=== PATIENT | female | born 1985 | race Caucasian/White ===

== ENCOUNTER → 2018-10-06 | Outpatient (CLI) | payer OTHER | LOC: COL.RAD 08:41 | DX: G44.229 Chronic tension-type headache, not intractable (principal); Z82.49 Family history of ischemic heart disease and other diseases of the circulatory system ==

== ENCOUNTER 2018-11-15 07:05 | Day surgery (SDC) | payer OTHER ==
[~2018-11-15] VITALS: Ht 162.6 cm; Wt 40.3 kg
[2018-11-15 07:51] VITALS: BP 106/76; PULSE 79; TEMP 98.4
[2018-11-15] MEDS ORDERED: MULTIPLE VITAMI1 CAP PO (08:18)
[2018-11-15] MEDS ORDERED: ZYRTEC 10MG10 MG PO (08:19)
[2018-11-15] MEDS ORDERED: [UNRECOGNIZED DRUG - OTHER] SQ (08:20)
[2018-11-15] MEDS ORDERED: PREMPHASE1 TAB PO (08:20)
[2018-11-15] MEDS ORDERED: TIROSINT75 MC1 PO (08:21)
[2018-11-15 09:40] VITALS: BP 98/57; PULSE 59
--- NOTE | 2018-11-15 09:40 | NUR ---
Patient returns to room 1 per cart from surgery and is awake and alert. Temp 97.4 and room air sats 97%. Right foot anais wrap dressing clean and dry with post op shoe on. IV fluids infusing and site is free of redness. Foot of cart is elevated. Denies pain or nausea. Mother in room. Allowed to rest.
[2018-11-15 09:55] VITALS: BP 100/54; PULSE 51
--- NOTE | 2018-11-15 09:55 | NUR ---
Resting and denies pain or nausea. Mother in room. Patient is tolerating sips of water.
[2018-11-15] MEDS ORDERED: ZOFRAN INJ4 MG/2 ML IV (10:02)
[2018-11-15 10:10] VITALS: BP 98/62; PULSE 54
--- NOTE | 2018-11-15 10:10 | NUR ---
Room air sats 99%. Resting and sipping on water.
[2018-11-15 10:25] VITALS: BP 99/62; PULSE 55
--- NOTE | 2018-11-15 10:25 | NUR ---
Eating muffin and applesauce. Denies nausea.
[2018-11-15 10:40] VITALS: BP 99/63; PULSE 58
--- NOTE | 2018-11-15 10:40 | NUR ---
Room air sats 97%. Offers no complaints.
[2018-11-15] MEDS ORDERED: PERCOCET 325 MG1 TA2 PO (10:43)
--- NOTE | 2018-11-15 10:55 | NUR ---
Assisted up to the bathroom and voids. Post op shoe on and anais wrap dressing clean and dry. IV discontinued.
--- NOTE | 2018-11-15 11:00 | NUR ---
Patient dresses self and tolerates activity well.
--- NOTE | 2018-11-15 11:12 | NUR ---
Given dismissal instructions and voices understanding of home cares and follow as scheduled by Dr. Vo. Provided office number for questions and concerns.
--- NOTE | 2018-11-15 11:20 | NUR ---
Patient dismissed to home per private vehicle driven by mother and taken to the front door per wheelchair and assisted into vehicle by RN with instructions in hand.
== END 2018-11-15 11:20 | disposition home or self-care (01) ==
LOC: SDCO 07:05
DX: M20.11 Hallux valgus (acquired), right foot (principal); M21.611 Bunion of right foot; E23.0 Hypopituitarism; E66.9 Obesity, unspecified; K59.04 Chronic idiopathic constipation; E04.9 Nontoxic goiter, unspecified; J30.89 Other allergic rhinitis; G44.229 Chronic tension-type headache, not intractable; Z82.0 Family history of epilepsy and other diseases of the nervous system; Z82.5 Family history of asthma and other chronic lower respiratory diseases; Z83.79 Family history of other diseases of the digestive system; Z82.61 Family history of arthritis; Z88.2 Allergy status to sulfonamides; Z79.51 Long term (current) use of inhaled steroids
CPT/HCPCS: J0690; J1100; J1885; J2250; J2405; J2704; J3010; J7120

== ENCOUNTER → 2020-07-29 | Outpatient (CLI) | payer OTHER ==
[~2020-07-29] MED LIST: MULTIPLE VITAMI1 CAP PO; PERCOCET 325 MG1 TA2 PO; PREMPHASE1 TAB PO; TIROSINT75 MC1 PO; ZOFRAN INJ4 MG/2 ML IV; ZYRTEC 10MG10 MG PO; [UNRECOGNIZED DRUG - OTHER] SQ
== END ==
LOC: COL.LAB 13:09
DX: Z01.89 Encounter for other specified special examinations (principal)

== ENCOUNTER 2023-11-21 11:55 | Day surgery (SDC) | payer BC ==
[~2023-11-21] VITALS: Ht 162.6 cm; Wt 89.9 kg
[~2023-11-21 11:55] MED LIST changes: +LR 1,000 ML IV SCH; +Ondansetron 4 MG/2 ML VIAL IV PRN; +PREMPRO 0.625/21 TAB PO
[2023-11-21 12:35] VITALS: BP 112/78; PULSE 76; TEMP 97.5
--- NOTE | 2023-11-21 12:41 | NUR ---
Patient alert, oriented x4, ambulates with steady gait. Admitted to [facility]. Admission assessments complete. Consents signed. Waiver for test signed. 22G IV inserted into RAC. Dr. Sales in room to answer questions. LR infusing without issue. Resting in recliner, call light within reach. brought to bedside.
[2023-11-21] MEDS ORDERED: Lidocaine PF 2% (20 MG/ML) 5 ML VIAL ONE (12:56)
[2023-11-21] MEDS ORDERED: ZYRTEC 10MG10 MG PO (12:58)
[2023-11-21] MEDS ORDERED: FLONASEALLERGY NS (12:58)
[2023-11-21] MEDS ORDERED: MAGNESIUM CITR100 MG PO (12:59)
[2023-11-21] MEDS ORDERED: FOLIC ACID 11 MG/TA1 PO (12:59)
[2023-11-21] MEDS ORDERED: VITAMIN D31000 I1 PO (12:59)
[2023-11-21] MEDS ORDERED: IRON TABLETS325 MG PO (13:00)
[2023-11-21 13:30] VITALS: BP 114/78; PULSE 85
[2023-11-21 13:45] VITALS: BP 113/83; PULSE 70
[2023-11-21 14:00] VITALS: BP 102/62; PULSE 72
--- NOTE | 2023-11-21 16:55 | NUR ---
1330 PATIENT RETURNS TO [facility] VIA CART. PT AWAKE AND ALERT. RESPIRATIONS UNLABORED. AMBULATED TO RECLINER CHAIR WITH 2:1 SBA. PT DENIES NAUSEA OR ABDOMINAL PAIN. HOOKED UP TO MONITOR AND VS OBTAINED. CALL LIGHT AT SIDE AND PRESENT. 1340 PATIENT TOLERATING APPLESAUCE AND WATER WITHOUT NAUSEA OR DIFFICULTY SWALLOWING. 1345 DR. LESLIE IN ROOM SPEAKING WITH PATIENT. 1355 D/C INSTRUCTIONS REVIEWED WITH PATIENT. PT VERBALIZED UNDERSTANDING AND A COPY OF INSTRUCTIONS PROVIDED IN D/C FOLDER. 1405 PATIENT DRESSES SELF. 1415 PATIENT DISCHARGED FROM UNIT VIA W/C TO A PERSONAL VEHICLE. PT LEFT HOSPITAL IN STABLE CONDITION.
== END 2023-11-21 14:15 | disposition home or self-care (01) ==
LOC: SDCO 11:55
DX: K29.30 Chronic superficial gastritis without bleeding (principal); K21.9 Gastro-esophageal reflux disease without esophagitis; Z79.899 Other long term (current) drug therapy
CPT/HCPCS: J2704; J7120